=== PATIENT | male | born 1995 | race Caucasian/White ===

== ENCOUNTER 2017-06-02 23:43 | Emergency (ER) | payer OTHER ==
[~2017-06-02] VITALS: Ht 185.4 cm; Wt 95.0 kg
[2017-06-03 00:25] LABS: HEMATOCRIT 45.1 % (38.0-50.0); HEMOGLOBIN 16.8 G/DL (12.5-16.6); MCHC 37.3 G/DL (30.0-36.0); MCV 85.9 FL (86-99); PLATELET COUNT 157 K/uL (156-360); RBC DIS.WIDTH-CV 11.4 % (11.8-14.6); RBC DIS.WIDTH-SD 35.9 % (39-53); RED BLOOD COUNT 5.25 M/uL (4.00-5.50); WHITE BLOOD COUNT 5.6 K/uL (4.1-10.2)
[2017-06-03 00:35] LABS: ALBUMIN 4.4 g/dL (3.2-4.8); CHLORIDE 105 mEq/L (99-109); POTASSIUM 3.7 mEq/L (3.7-5.4); SODIUM 138 mEq/L (136-147)
[2017-06-03 00:37] LABS: GLUCOSE 101 mg/dL (70-99); TOTAL PROTEIN 6.9 g/dL (6.4-8.3)
[2017-06-03 00:39] LABS: TOTAL BILIRUBIN 0.8 mg/dL (0.0-1.0)
[2017-06-03 00:41] LABS: ALKALINE PHOSPHATASE 83 IU/L (3-129); CREATININE 1.1 mg/dL (0.6-1.3)
[2017-06-03 00:42] LABS: UREA NITROGEN (BUN) 16 mg/dL (9-23)
[2017-06-03 00:43] LABS: AST (GOT) 20 IU/L (2-34)
[2017-06-03 00:44] LABS: ALT (GPT) 20 IU/L (3-49); LIPASE 7 U/L (1.0-51.0)
[2017-06-03 00:45] LABS: GFR ESTIMATE (CALCULATED) > 59 mL/min/ (58.99-99999)
[2017-06-03] MEDS ORDERED: OMNICEF50 MG/1 ML PO (02:44)
[2017-06-03] MEDS ORDERED: ZOFRAN4 MG PO (02:48)
[2017-06-03] MEDS ORDERED: BENTYL20 MG PO (02:48)
[2017-06-03] MEDS ORDERED: IMODIUM A-D2 M2 PO (02:58)
[2017-06-03 03:10] VITALS: BP 105/52
[2017-06-03] MEDS ORDERED: NORCO 5/3251 TABLET PO (07:10)
== END 2017-06-03 03:11 | disposition home or self-care (01) ==
LOC: EME 23:43
DX: K52.9 Noninfective gastroenteritis and colitis, unspecified (principal)
CPT/HCPCS: 74177; 80053; 81003; 83690; 85027; 99281; 99285; J2270; J2405; J7030; S0028